=== PATIENT | female | born 1980 | race Caucasian/White ===

== ENCOUNTER 2017-06-10 07:14 | Emergency (ER) | payer OTHER ==
[2017-06-10 07:29] VITALS: BP 119/75
--- NOTE | 2017-06-10 09:30 | UC ---
Throat Pain/Nasal Perry HPI - HPI Summary HPI Summary: fever and muscle aches all day yesterday. woke with ST today. not interferring with eating and drinking. no rash, no trouble breathing. - History of Current Complaint Chief Complaint: UCGeneralIllness Stated Complaint: FEVER SORE THROAT Time Seen by Provider: 06/10/17 07:26 Hx Obtained From: Patient Hx Last Menstrual Period: 06/01/17 ?: No Onset/Duration: Sudden Onset, Lasting Days, Still Present, Worse Since - this am Severity: Moderate Pain Intensity: 7 Pain Scale Used: 0-10 Numeric Cough: None Associated Signs & Symptoms: Positive: Dysphagia, Fever. Negative: FB Sensation , Drooling, Wheezing, Hoarseness, Sinus Discomfort, Nasal Discharge, Vomiting, Rash - Epiglottits Risk Factors Epiglottis Risk Factors: Negative - Allergies/Home Medications Allergies/Adverse Reactions: Allergies Allergy/AdvReac Type Severity Reaction Status Date / Time Sulfamethoxazole Allergy Rash Verified 06/10/17 07:30 w/Trimethoprim [From Bactrim] Home Medications: Home Medications NK [No Home Medications Reported] 06/10/17 [History Confirmed 06/10/17] PMH/Surg Hx/FS Hx/Imm Hx Previously Healthy: Yes Other History Of: Negative For: HIV, Hepatitis C - Surgical History Surgical History: Yes Surgery Procedure, Year, and Place: ARTHROSCOPIC KNEE SURGERY, UTERINE "SCRAPING " - Family History Known Family History: Negative: Cardiac Disease, Hypertension, Diabetes - Social History Occupation: Employed Full-time Lives: With Family Alcohol Use: Occasionally Substance Use Type: None Smoking Status (MU): Former Smoker Review of Systems Constitutional: Fever, Chills Skin: Negative ENT: Sore Throat, Ear Ache Respiratory: Negative Cardiovascular: Negative Gastrointestinal: Negative Genitourinary: Negative Musculoskeletal: Myalgia Neurological: Negative All Other Systems Reviewed And Are Negative: Yes Physical Exam Triage Information Reviewed: Yes Appearance: Well-Appearing, No Pain Distress, Well-Nourished Vital Signs: Initial Vital Signs Temp 98.4 F 06/10/17 07:23 Pulse 69 06/10/17 07:23 Resp 18 06/10/17 07:23 BP 119/75 06/10/17 07:23 Pulse Ox 98 06/10/17 07:23 Vital Signs Reviewed: Yes Eyes: Positive: Conjunctiva Clear. Negative: Discharge ENT: Positive: Hearing grossly normal, Pharyngeal erythema, TMs normal, Tonsillar swelling, Tonsillar exudate. Negative: Nasal congestion, Nasal drainage, Trismus, Muffled/hoarse voice Dental Exam: Normal Neck: Positive: Tenderness @, Enlarged Nodes @ Respiratory: Positive: Lungs clear, Normal breath sounds Cardiovascular: Positive: RRR, No Murmur Musculoskeletal Exam: Normal Neurological: Positive: Alert, Muscle Tone Normal Psychological: Positive: Age Appropriate Behavior Skin Exam: Normal Throat Pain/Nasal Course/Dx - Differential Dx/Diagnosis Differential Diagnosis/HQI/PQRI: Otitis Media, Pharyngitis, Sinusitis, Tonsillitis, URI Provider Diagnoses: sore throat Discharge - Discharge Plan Condition: Stable Disposition: HOME Patient Education Materials: Strep Throat (ED) Referrals: Eduar Richmond MD [Primary Care Provider] - If Needed Additional Instructions: YOUR RAPID STREP WAS NEGATIVE. WE ARE SENDING IN A CULTURE TO CONFIRM. HOPE YOU FEEL BETTER SOON.
--- NOTE | 2017-06-11 12:21 | UC ---
Progress - Progress Note Progress Note: throat cx positive for strep a. sent amoxicillin. called pt and informed her.
== END 2017-06-10 08:26 | disposition home or self-care (01) ==
LOC: UCEAST 07:14
DX: J02.9 Acute pharyngitis, unspecified (principal)
CPT/HCPCS: 87070; 87077; 87651; 99211; G0463

== ENCOUNTER 2018-06-03 08:26 | Emergency (ER) | payer OTHER ==
[2018-06-03 08:41] VITALS: BP 116/67
--- NOTE | 2018-06-03 08:49 | UC ---
Lower Extremity/Ankle HPI - HPI Summary HPI Summary: 37 y/o female presents to the urgent care c/o RT te pain s/p injury w/ a large outdoor drill that fell off on her toe last night. Pt states Pain is throbbing 8 /10 localized around nail. Pt can move her toe, but it is painful. Pt denies numbness or tingling sensation over foot or toe. Pt denies fever, calf pain, SOB , chest pain, abdominal pain, N/v/D. Pt applied ice and has not taking anything to alleviate symptoms. No nail bruising. - History of Current Complaint Chief Complaint: UCLowerExtremity Stated Complaint: R TOE INJURY Time Seen by Provider: 06/03/18 08:29 Hx Obtained From: Patient Hx Last Menstrual Period: 05/30/18 ?: No - Pt declines X-ray Onset/Duration: Sudden Onset, Lasting Days - 1 day, Still Present, Worse Since - today Severity Initially: Moderate Severity Currently: Moderate Pain Intensity: 8 - throbbing Pain Scale Used: 0-10 Numeric Aggravating Factor(s): Standing, Ambulation Alleviating Factor(s): Rest, Elevation Able to Bear Weight: Yes - Risk Factors Gout Risk Factors: Negative DVT Risk Factors: Negative Septic Arthritis Risk Factor: Negative - Allergies/Home Medications Allergies/Adverse Reactions: Allergies Allergy/AdvReac Type Severity Reaction Status Date / Time sulfamethoxazole Allergy Intermediate Rash Verified 06/03/18 08:33 trimethoprim [From Bactrim] Allergy Intermediate Rash Verified 06/03/18 08:33 PMH/Surg Hx/FS Hx/Imm Hx Previously Healthy: Yes - Pt denies PMHX Other History Of: Negative For: HIV, Hepatitis C - Surgical History Surgical History: Yes Surgery Procedure, Year, and Place: ARTHROSCOPIC KNEE SURGERY, UTERINE "SCRAPING " - Family History Known Family History: Positive: Cardiac Disease Negative: Hypertension, Diabetes - Social History Occupation: Employed Full-time Lives: With Family Alcohol Use: Weekly Substance Use Type: None Smoking Status (MU): Former Smoker When Did the Patient Quit Smoking/Using Tobacco: 25 years Review of Systems Constitutional: Negative Skin: Negative Eyes: Negative ENT: Negative Respiratory: Negative Cardiovascular: Negative Gastrointestinal: Negative Genitourinary: Negative Motor: Negative Neurovascular: Negative Musculoskeletal: Decreased ROM - RT great toe, Other: - RT great toe pain s/p injury Neurological: Negative Psychological: Negative Is Patient Immunocompromised?: No All Other Systems Reviewed And Are Negative: Yes Physical Exam - Summary Physical Exam Summary: Vital Signs Reviewed: Yes General : well developed, well nourished female w/o any apparent pain distress Eyes: Positive: Conjunctiva Clear - PERRLA, EOMI ENT: Positive: Normal ENT inspection, Hearing grossly normal, Pharynx normal, TMs normal Neck: Positive: Supple, Nontender, No Lymphadenopathy Respiratory: Positive: Chest non-tender, Lungs clear, Normal breath sounds, No respiratory distress Cardiovascular: Positive: RRR, No Murmur, Pulses Normal Abdomen Description: Positive: Nontender, No Organomegaly, Soft. Negative: CVA Tenderness (R), CVA Tenderness (L) Bowel Sounds: Positive: Present Musculoskeletal: Positive: Strength Intact, ROM Intact, No Edema, Rt Foot/Toes: Pt is able to bear weight but ambulate with limping. RT foot :No surface trauma , ecchymosis, erythema, lesions, ulcers or break in skin integrity, no subungal hematoma seen after nail polished removed. The R foot is without obvious asymmetry or deformity when compared to the L foot. No bony step-off seen onver the RT great toe, Point tendernss to palpation over the RT DIPJ of great toe w / mild swelling observed, no tenderness of hindfoot, Decrease ROM of RT great toe due to pain. FROM plantar/dorsiflexion, inversion/eversion. Distal motor and neurovascular status are intact. Neurological Exam: Normal Psychological Exam: Normal Skin Exam: Normal Triage Information Reviewed: Yes Vital Signs: Initial Vital Signs Temp 97.7 F 06/03/18 08:35 Pulse 59 06/03/18 08:35 Resp 18 06/03/18 08:35 BP 116/67 06/03/18 08:35 Pulse Ox 100 06/03/18 08:35 Lower Extremity Course/Dx - Course Course Of Treatment: 37 y/o female presents to the urgent care c/o RT te pain s/ p injury w/ a large outdoor drill that fell off on her toe last night. Pt states Pain is throbbing 8/10 localized around nail. Pt can move her toe, but it is painful. Pt denies numbness or tingling sensation over foot or toe. Pt denies fever, calf pain, SOB, chest pain, abdominal pain, N/v/D. Pt applied ice and has not taking anything to alleviate symptoms. No nail bruising. Hx obtained. Nail polished removed and no subungual hematoma observed on examination. RT Great toe X-ray ordered, Impression: Comminuted fracture of the tuft of distal phlanx. Pt' symptoms disccused w/ DR Poole and he recommended immobilized toe by body taping and and a post-op shoe and f/y w/ Orthopedic. Pt 's foot immobilized by body taping w/ adjacent toe with jon-bandage and given a post-op shoe to avoid flexion. Pt has crutches at home. Advised RICE, and Rx Ibuprofen PO for pain, Advised to f/u with Orthopedic DR Lopez in 1-2 days referral for further evaluation and treatment. D/c instructions explained. Pt understood and agreed with plan of care. - Differential Dx/Diagnosis Differential Diagnosis/HQI/PQRI: Contusion, Fracture (Closed), Subungual Hematoma, Sprain, Strain, Tendonitis Provider Diagnoses: 1- RT great toe comminuted fracture of the tuft of distal phalanx s/p injury Discharge - Sign-Out/Discharge Documenting (check all that apply): Patient Departure - D/C home All imaging exams completed and their final reports reviewed: Yes - Discharge Plan Condition: Stable Disposition: HOME Prescriptions: Ibuprofen TAB* [Motrin TAB* 800 MG] 800 mg PO Q6H PRN #30 tab PRN Reason: Pain Patient Education Materials: Toe Fracture (ED) Forms: *Work Release Referrals: Eduar Richmond MD [Primary Care Provider] - 3 Days Rafa Lopez MD [Medical Doctor] - 1 Day Additional Instructions: 1-Please take medications as directed after meals to alleviate pain and swelling. 2-Please apply ice, keep your foot immobilized with the Jon bandage and post up- shoe. Avoid strenuous exercise or standing for long periods of time. Use the crutches you have at home to avoid weight bearing 3- Please f/u with Orthopedic Dr Lopez in 1-2 days for further evaluation and treatment. - Billing Disposition and Condition Condition: STABLE Disposition: Home
--- NOTE | 2018-06-03 09:15 | RAD ---
INDICATION: Right great toe injury. TECHNIQUE: 3 views of the right great toe were obtained. FINDINGS: There is diffuse soft tissue swelling which is most prominent around the distal phalanx. There is a comminuted fracture involving the tuft of the distal phalanx. There is very mild distraction of fracture fragments. No additional fracture is seen. IMPRESSION: COMMINUTED FRACTURE OF THE TUFT OF THE DISTAL PHALANX.
== END 2018-06-03 09:45 | disposition home or self-care (01) ==
LOC: UCEAST 08:26
DX: S92.421A Displaced fracture of distal phalanx of right great toe, initial encounter for closed fracture (principal); Z88.2 Allergy status to sulfonamides; Z87.891 Personal history of nicotine dependence; W31.1XXA Contact with metalworking machines, initial encounter; Y92.9 Unspecified place or not applicable
CPT/HCPCS: 99213; G0463

== ENCOUNTER 2019-12-20 20:27 | Emergency (ER) | payer OTHER ==
[2019-12-20 20:36] VITALS: BP 122/90
--- NOTE | 2019-12-20 22:02 | ED ---
Throat Pain/Nasal Congestion - HPI Summary HPI Summary: 38 yo WF p/w sore throat since yesterday w/o f/c/bodyaches/cough and worsening - History of Current Complaint Chief Complaint: UCRespiratory Time Seen by Provider: 12/20/19 21:53 Hx Obtained From: Patient Onset/Duration: Sudden Onset Severity: Moderate Associated Signs And Symptoms: Positive: Negative Cough: Nonproductive - Epiglottits Risk Factors Epiglottis Risk Factors: Negative - Allergies/Home Medications Allergies/Adverse Reactions: Allergies Allergy/AdvReac Type Severity Reaction Status Date / Time sulfamethoxazole Allergy Intermediate Rash Verified 06/03/18 08:33 trimethoprim [From Bactrim] Allergy Intermediate Rash Verified 06/03/18 08:33 Home Medications: Home Medications Ibuprofen TAB* [Motrin TAB* 800 MG] 800 mg PO Q6H PRN #30 tab 06/03/18 [Rx] PMH/Surg Hx/FS Hx/Imm Hx Previously Healthy: Yes Endocrine/Hematology History: Denies: Hx Diabetes, Hx Thyroid Disease Cardiovascular History: Denies: Hx Congestive Heart Failure, Hx Deep Vein Thrombosis, Hx Hypertension , Hx Myocardial Infarction, Hx Pacemaker/ICD Respiratory History: Denies: Hx Asthma, Hx Chronic Obstructive Pulmonary Disease (COPD), Hx Lung Cancer GI History: Denies: Hx Gall Bladder Disease, Hx Gastrointestinal Bleed, Hx Ulcer, Hx Urosepsis History: Denies: Hx Kidney Stones, Hx Renal Disease Neurological History: Denies: Hx Dementia, Hx Migraine, Hx Seizures, Hx Transient Ischemic Attacks (TIA) Psychiatric History: Denies: Hx Anxiety, Hx Depression, Hx Schizophrenia, Hx Bipolar Disorder - Surgical History Surgery Procedure, Year, and Place: ARTHROSCOPIC KNEE SURGERY, UTERINE "SCRAPING " Infectious Disease History: No Infectious Disease History: Denies: Hx Clostridium Difficile, Hx Hepatitis, Hx Human Immunodeficiency Virus (HIV), Hx of Known/Suspected MRSA, Hx Shingles, Hx Tuberculosis, Hx Known/ Suspected VRE, Hx Known/Suspected VRSA, History Other Infectious Disease, Traveled Outside the [place] in Last 30 Days - Family History Known Family History: Positive: Cardiac Disease, Non-Contributory Negative: Hypertension, Diabetes - Social History Lives: With Family Alcohol Use: Weekly Substance Use Type: Reports: None Smoking Status (MU): Former Smoker Review of Systems Constitutional: Negative Eyes: Negative Positive: Sore Throat Cardiovascular: Negative Respiratory: Negative Negative: Shortness Of Breath, Cough Gastrointestinal: Negative Genitourinary: Negative Musculoskeletal: Negative Skin: Negative Neurological/Mental Status: Negative All Other Systems Reviewed And Are Negative: Yes Physical Exam - Summary Physical Exam Summary: Gen: NAD Eye Exam: Normal Eyes: Positive: Conjunctiva Clear ENT:pharyngeal erythema with one 2mm circular exudate on right tonsil Neck: Supple Respiratory: Lungs clear, Normal breath sounds. Negative: Crackles, Rhonchi, Stridor, Wheezing Cardiovascular Exam: Normal, RRR, S1, S2 Abdomen: NT/ND Musculoskeletal Exam: Normal Neurological Exam: Normal Psychological Exam: Normal Skin Exam: Normal Vital Signs On Initial Exam: Initial Vitals Temp Pulse Resp BP Pulse Ox 36.9 C 66 18 122/90 99 12/20/19 20:30 12/20/19 20:30 12/20/19 20:30 12/20/19 20:30 12/20/19 20:30 Diagnostics - Vital Signs Vital Signs Temp Pulse Resp BP Pulse Ox 12/20/19 20:30 36.9 C 66 18 122/90 99 - Laboratory Lab Statement: Any lab studies that have been ordered have been reviewed, and results considered in the medical decision making process. EENT Course/Dx - Course Assessment/Plan: rapid strep NEG, throast cx sent, supportive tx, throat cx pending if positive will send for abx - Diagnoses Provider Diagnoses: Exudative pharyngitis Discharge ED - Sign-Out/Discharge Documenting (check all that apply): Patient Departure All imaging exams completed and their final reports reviewed: No Studies - Discharge Plan Condition: Stable Disposition: HOME Referrals: Eduar Richmond MD [Primary Care Provider] - - Billing Disposition and Condition Condition: STABLE Disposition: Home
[2019-12-20 22:07] LABS: Influenza A Molecular Negative (Negative); Influenza B Molecular Negative (Negative)
== END 2019-12-20 22:09 | disposition home or self-care (01) ==
LOC: UCEAST 20:27
DX: J02.9 Acute pharyngitis, unspecified (principal); Z88.2 Allergy status to sulfonamides; Z87.891 Personal history of nicotine dependence
CPT/HCPCS: 87070; 87651; 99211; G0463